=== PATIENT | male | born 1965 | race Caucasian/White ===

== ENCOUNTER 2020-06-14 07:52 | Outpatient (CLI) | payer OTHER | END 2020-06-14 08:03 | disposition home or self-care (01) | LOC: TOM 07:52 | PROVIDERS: ATTEND Urology | DX: N32.1 Vesicointestinal fistula (principal) ==

== ENCOUNTER 2020-09-30 09:00 | Day surgery (SDC) | payer OTHER ==
[~2020-09-30 09:00] MED LIST: CLONAZEPAM2 MG PO; HIPREX1 GM PO; JANUMET XR 1001 EACH PO; LYRICA150 MG PO; TAMS0.4C PO; TOPROL XL25 M1 PO; XANAX1 MG PO; ZESTRIL10 M1 PO; pletal
== END 2020-09-30 17:10 | disposition home or self-care (01) ==
LOC: CIR.AMB 09:00
PROVIDERS: ATTEND Urology
DX: N20.0 Calculus of kidney (principal); Z20.828 Contact with and (suspected) exposure to other viral communicable diseases